=== PATIENT | male | born 1950 | race Caucasian/White ===

== ENCOUNTER → 2021-11-03 | Outpatient (CLI) | payer OTHER | END | disposition home or self-care (01) | LOC: SHCH 09:26 | PROVIDERS: ATTEND Internal Medicine Cardiovascular Disease | DX: I25.10 Atherosclerotic heart disease of native coronary artery without angina pectoris (principal); E78.5 Hyperlipidemia, unspecified | CPT/HCPCS: 93306 ==

== ENCOUNTER → 2021-11-14 | Outpatient (CLI) | payer OTHER ==
[~2021-11-14] VITALS: Ht 175.3 cm; Wt 98.4 kg
[~2021-11-14] MED LIST: REGADENOSON 0.4 MG/5 ML PF SYG IVP SCH
== END ==
LOC: EDUNIT# 10-31 08:10 → SHCH 08:57
PROVIDERS: ATTEND Internal Medicine Cardiovascular Disease
DX: I25.10 Atherosclerotic heart disease of native coronary artery without angina pectoris (principal)
CPT/HCPCS: 78452; 93017; 96374; A9500 ×2; J2785

== ENCOUNTER 2022-04-17 05:52 | Day surgery (SDC) | payer OTHER ==
[2022-04-15 09:19] LABS: BASOPHILS % (AUTO) 0.7 % (0.0-5.0); EOSINOPHILS % (AUTO) 3.9 % (0.0-8.0); HEMATOCRIT 44.1 % (42-54); LYMPHOCYTES % (AUTO) 32.5 % (21.0-51.0); MEAN CORPUSCULAR HEMOGLOBIN 29.6 pg (27.0-33.0); MEAN CORPUSCULAR HGB CONC 32.7 g/dL (32.0-36.0); MEAN CORPUSCULAR VOLUME 90.6 fL (79-99); MONOCYTES % (AUTO) 8.6 % (3.0-13.0); PLATELET COUNT (AUTO) 228 K/uL (130-400); RED BLOOD CELL COUNT(AUTO) 4.87 MIL/uL (4.50-6.20); RED CELL DISTRIBUTION WIDTH 12.9 % (11.0-15.5); WHITE BLOOD COUNT (AUTO) 7.1 K/uL (4.8-10.8)
[2022-04-15 09:30] LABS: ALBUMIN 3.9 g/dL (3.5-5.0); CARBON DIOXIDE 33 mmol/L (21-32); CHLORIDE 106 mmol/L (101-111); CREATININE 1.5 mg/dL (0.5-1.5); GLOMERULAR FILTR. RATE CALC 49 mL/min (>60); GLUCOSE,RANDOM 96 mg/dL (70-105); POTASSIUM 4.8 mmol/L (3.5-5.1); SODIUM SERUM 142 mmol/L (136-145); UREA NITROGEN, BLOOD 23 mg/dL (7-18)
[2022-04-15 09:31] LABS: CRP QUANTITATIVE < 2.00 mg/L (0.00-9.0)
[2022-04-16 09:05] VITALS: BP 131/74
[2022-04-17] VITALS (17 sets, daily range): BP systolic 113–139; BP diastolic 60–75
[~2022-04-17] VITALS: Ht 205.7 cm; Wt 98.0 kg
[~2022-04-17 05:52] MED LIST changes: +ATOR40TA71 PO; +BUSP15TA3 PO; +EPINEPHRINE 1 MG/ML 30ML VIAL IJ ONE; +FAMO20TA8 PO; +FLUO20CA36 PO; +GABA300C PO; +LORA10TA7 PO; +METH-812 PO; +NITR0.4T SL; -REGADENOSON 0.4 MG/5 ML PF SYG IVP SCH; +VITA100T5 PO; +VITA1TAB22 PO
[2022-04-17] MEDS: CEFAZOLIN SODIUM 1 GM VIAL IVP SCH ×2 (06:00→07:48)
[2022-04-17] MEDS ORDERED: LACTATED RINGERS 1000ML 1,000 ML IV ONE (06:15)
[2022-04-17] MEDS ORDERED: LIDOCAINE PF 100MG/5ML (2%) SYRINGE 5ML ONE (06:57)
[2022-04-17] MEDS ORDERED: SUCCINYLCHOLINE CHLORIDE 20 MG/ML 10 ML VIAL ONE (06:57)
[2022-04-17] MEDS ORDERED: ROPIVACAINE 0.5% 5MG/ML 30ML IJ ONE (06:57)
[2022-04-17] MEDS ORDERED: ROCURONIUM 10MG/1ML SYR 10 MG/ML ML ONE (06:58)
[2022-04-17] MEDS ORDERED: PROPOFOL 10 MG/ML 20ML VIAL IV ONE (06:58)
[2022-04-17] MEDS ORDERED: FENTANYL CITRATE PF 50 MCG/1 ML 2ML VIAL ONE (06:58)
[2022-04-17] MEDS ORDERED: ONDANSETRON 4MG INJ ONE (09:41)
[2022-04-17] MEDS ORDERED: KETOROLAC 30MG VIAL (30MG/ML) ONE (09:41)
[2022-04-17] MEDS ORDERED: GLYCOPYRROLATE 1 MG/5 ML SYRINGE ONE (09:41)
[2022-04-17] MEDS ORDERED: NEOSTIGMINE 5MG/5ML SYR IV ONE (09:42)
[2022-04-17] MEDS ORDERED: HYDR-4060 PO (09:51)
== END 2022-04-17 11:30 | disposition home or self-care (01) ==
LOC: DAH 05:52
PROVIDERS: ATTEND Student in an Organized Health Care Education/Training Program
DX: M75.121 Complete rotator cuff tear or rupture of right shoulder, not specified as traumatic (principal); M19.011 Primary osteoarthritis, right shoulder; M75.21 Bicipital tendinitis, right shoulder; M65.811 Other synovitis and tenosynovitis, right shoulder; M94.211 Chondromalacia, right shoulder; M67.211 Synovial hypertrophy, not elsewhere classified, right shoulder; M24.111 Other articular cartilage disorders, right shoulder; E78.00 Pure hypercholesterolemia, unspecified; I10 Essential (primary) hypertension; E78.5 Hyperlipidemia, unspecified; Z82.49 Family history of ischemic heart disease and other diseases of the circulatory system; Z87.891 Personal history of nicotine dependence; Z72.89 Other problems related to lifestyle
CPT/HCPCS: 82040; 80048; 85025; 84134; 86140; 87426; 36415; 29827; 29826; 64415; 76942; A4663; A6207; J7030; A4565; J7120; J3010; J0690; J3490; J2710; J0330; J0171; J2001; J2704; J2405; J1885; J2795; A6223; A4649 ×2; C1713; A5120; A4215; A4223; A4657; A4222; A4221; A4216; A4600